=== PATIENT | male | born 1970 | race Two or more races ===

== ENCOUNTER 2020-01-24 11:47 | Emergency (ER) | payer MEDICAID ==
[~2020-01-24] VITALS: Ht 170.2 cm; Wt 104.3 kg
[2020-01-24 11:51] VITALS: BP 130/72
[2020-01-24] MEDS ORDERED: FAMOTIDINE (20 MG) 20 MG TABLET ONE (12:17)
[2020-01-24] MEDS ORDERED: diphenhydrAMINE HCL 50 MG CAPSULE ONE (12:17)
[2020-01-24] MEDS ORDERED: predniSONE 20 MG TABLET ONE (12:18)
[2020-01-24] MEDS ORDERED: predniSONE 10 MG TABLET PO ONE (12:30)
[2020-01-24] MEDS ORDERED: diphenhydrAMINE HCL 50 MG CAPSULE PO ONE (12:30)
[2020-01-24] MEDS ORDERED: FAMOTIDINE (20 MG) 20 MG TABLET PO ONE (12:30)
== END 2020-01-24 13:16 | disposition home or self-care (01) ==
LOC: ER 11:48
DX: E11.9 Type 2 diabetes mellitus without complications (principal); L50.0 Allergic urticaria
CPT/HCPCS: 99284; J7512; Q0163